=== PATIENT | male | born 1945 | race Caucasian/White ===

== ENCOUNTER 2017-02-15 12:21 | Inpatient (IN) | payer OTHER, MEDICARE ==
[~2017-02-15] VITALS: Ht 172.7 cm; Wt 86.3 kg
[2017-02-15] MEDS ORDERED: SODIUM CHLORIDE 0.9% 500 ML IVB ONE (13:45)
[2017-02-15] MEDS ORDERED: LEVOFLOXACIN 500MG 100 ML IV ONE (13:45)
[2017-02-15] MEDS ORDERED: NOREPINEPHRINE BITARTRATE 250 ML IV ONE (15:15)
[2017-02-15] MEDS ORDERED: ACETAMINOPHEN 650 MG RECT SUPP PR ONE (15:30)
[2017-02-15] MEDS: NOREPINEPHRINE BITARTRATE 250 ML IV SCH (15:30)
[2017-02-15] MEDS ORDERED: NOREPINEPHRINE BITARTRATE 250 ML IV SCH (15:30)
[2017-02-15 15:41] LABS: Basophils # (auto) 0 uL; Basophils % (auto) 0.1 % (0.0-2.0); CONDITION Y; Eosinophils # (auto) 0 uL; Eosinophils % (auto) 0.1 % (0.0-7.0); Hematocrit 35.7 % (41.0-53.0); Hemoglobin 12.3 g/dL (13.5-17.5); Lymphocytes # (auto) 0.8 uL; Lymphocytes % (auto) 3.3 % (10.0-50.0); Mean Corpuscular Hgb Conc. 34.5 g/dL (32.0-36.0); Mean Corpuscular Volume 92.8 fL (80.0-100.0); Mean Platelet Volume 8.9 fL (6.9-10.8); Monocytes # (auto) 1.3 uL; Monocytes % (auto) 5.4 % (0.0-12.0); Neutrophils # (auto) 22.2 uL; Neutrophils % (auto) 91.1 % (37.0-80.0); Platelet Count (auto) 269 10^3/uL (140-450); Red Cell Distribution Width 15.2 % (11.8-14.3); SUSPECT SEE PRINTOUT; White Blood Cell 24.4 10^3/uL (4.4-10.8)
[2017-02-15 16:00] LABS: Albumin 2.4 g/dL (3.4-5.0); BUN/Creatinine Ratio 13.4; Calcium 9.4 mg/dL (8.5-10.1)
[2017-02-15 16:05] LABS: Lactic Acid w/Reflex 5.2 mmol/L (0.4-2.0)
[2017-02-15] MEDS ORDERED: MORPHINE SULF INJ 2 MG/ML SYRINGE 1ML IV PRN (16:15)
[2017-02-15] MEDS ORDERED: ACETAMINOPHEN 325 MG RECT SUPP PR PRN (16:15)
[2017-02-15] MEDS ORDERED: NITROGLYCERIN 0.4 MG SL TAB SL PRN (16:15)
[2017-02-15] MEDS ORDERED: DEXTROSE (50%) 50ML SYRG IV PRN (16:15)
[2017-02-15] MEDS ORDERED: VANCOMYCIN PER PHARMACY 0 MG IV SCH (16:15)
[2017-02-15 16:17] LABS: Bilirubin, Total 1.6 mg/dL (0.2-1.0)
[2017-02-15 16:30] LABS: REFLEX LACTIC ACID YES OR NO YES
[2017-02-15] MEDS ORDERED: ACETAMINOPHEN 500 MG TAB PO PRN (16:30)
[2017-02-15] MEDS ORDERED: SODIUM CHLORIDE 0.9% 1,000 ML IV ONE (17:15)
[2017-02-15] MEDS: LINEZOLID 600MG/300ML 300 ML IV SCH (17:20)
[2017-02-15] MEDS: SODIUM CHLORIDE 0.9% 1,000 ML IV SCH (17:20)
[2017-02-15] MEDS ORDERED: PIPERACILLIN-TAZOB 3.375GM 100 ML IV SCH (18:00)
[2017-02-15] MEDS: ACCU-CHEK COMFORT CURVE STRIP VI SCH (19:08)
[2017-02-15] MEDS: PIPERACILLIN-TAZOB 2.25GM 50 ML IV SCH (19:13)
[2017-02-15] MEDS: InsuLIN REG 1unit/0.01ml Soln (100units/ml) SC SCH (19:24)
[2017-02-15 20:21] LABS: Urine Bilirubin Negative (Negative); Urine Blood 2+ /uL (Negative); Urine Glucose Normal (Normal); Urine Ketone Negative (Negative); Urine Mucus FEW (None Seen); Urine Nitrite Negative (Negative); Urine RBC 437 /hpf (0 - 3); Urine Squamous Epithelial Cell FEW /hpf (<5); Urine Urobilinogen Normal (Negative); Urine pH 5.5 (5.0-8.0)
[2017-02-15 20:22] LABS: Urine Color Yellow (Yellow)
[2017-02-15 23:15] VITALS: BP 112/39
[2017-02-15 23:30] VITALS: BP 117/53
[2017-02-15 23:45] VITALS: BP 116/58
[2017-02-16] VITALS (83 sets, daily range): BP systolic 81–135; BP diastolic 29–94
[2017-02-16] MEDS: PIPERACILLIN-TAZOB 2.25GM 50 ML IV SCH ×5 (00:28→23:34)
[2017-02-16] MEDS: SODIUM CHLORIDE 0.9% 1,000 ML IV SCH (02:15)
[2017-02-16 03:32] LABS: Basophils # (auto) 0.1 uL; Basophils % (auto) 0.3 % (0.0-2.0); Eosinophils # (auto) 0 uL; Eosinophils % (auto) 0.1 % (0.0-7.0); Hemoglobin 10.8 g/dL (13.5-17.5); Lymphocytes # (auto) 0.8 uL; Mean Corpuscular Hemoglobin 31.1 pg (28.0-32.0); Mean Corpuscular Hgb Conc. 32.7 g/dL (32.0-36.0); Mean Corpuscular Volume 95.2 fL (80.0-100.0); Mean Platelet Volume 8.1 fL (6.9-10.8); Monocytes # (auto) 1.3 uL; Neutrophils % (auto) 89.6 % (37.0-80.0); Platelet Count (auto) 200 10^3/uL (140-450); Red Cell Distribution Width 15.3 % (11.8-14.3); White Blood Cell 21.2 10^3/uL (4.4-10.8)
[2017-02-16 03:58] LABS: Albumin 2.1 g/dL (3.4-5.0); Calcium 7.9 mg/dL (8.5-10.1); Potassium 4.2 mmol/L (3.5-5.1)
[2017-02-16 04:00] LABS: BUN/Creatinine Ratio 15.5
[2017-02-16 04:16] LABS: Bilirubin, Total 1.4 mg/dL (0.2-1.0); Total Protein 6.5 g/dL (6.4-8.2)
[2017-02-16] MEDS: LINEZOLID 600MG/300ML 300 ML IV SCH ×2 (05:20→16:09)
[2017-02-16] MEDS: InsuLIN REG 1unit/0.01ml Soln (100units/ml) SC SCH ×5 (05:32→23:33)
[2017-02-16] MEDS: ACCU-CHEK COMFORT CURVE STRIP VI SCH ×5 (05:59→23:33)
[2017-02-16] MEDS: NOREPINEPHRINE BITARTRATE 250 ML IV SCH (08:40)
[2017-02-16] MEDS: PANTOPRAZOLE 40 MG/10 ML VIAL IV SCH (12:05)
[2017-02-16] MEDS: SODIUM BICARBONATE 50ML VIAL 50 ML in SOD CHL 0.45% 1,000 ML IV SCH (13:40)
[2017-02-16] MEDS ORDERED: SIMV-8 PO (15:49)
[2017-02-16] MEDS ORDERED: POTA10SO11 PO (15:49)
[2017-02-16] MEDS ORDERED: FERR27TA2 PO (15:49)
[2017-02-16] MEDS ORDERED: CALC667C PO (15:49)
[2017-02-16] MEDS ORDERED: CAR3125T OR (15:49)
[2017-02-16] MEDS ORDERED: FURO80TA PO (15:49)
[2017-02-17] VITALS (94 sets, daily range): BP systolic 89–137; BP diastolic 32–82
[2017-02-17] MEDS: SODIUM BICARBONATE 50ML VIAL 50 ML in SOD CHL 0.45% 1,000 ML IV SCH ×3 (00:21→14:27)
[2017-02-17 03:36] LABS: Basophils # (auto) 0.1 uL; Basophils % (auto) 0.5 % (0.0-2.0); Eosinophils # (auto) 0.2 uL; Hematocrit 32.1 % (41.0-53.0); Hemoglobin 10.7 g/dL (13.5-17.5); Lymphocytes # (auto) 0.7 uL; Mean Corpuscular Hemoglobin 31.2 pg (28.0-32.0); Mean Corpuscular Hgb Conc. 33.4 g/dL (32.0-36.0); Mean Corpuscular Volume 93.5 fL (80.0-100.0); Monocytes # (auto) 1.3 uL; Monocytes % (auto) 7.3 % (0.0-12.0); Neutrophils # (auto) 15.7 uL; Neutrophils % (auto) 87.2 % (37.0-80.0); Platelet Count (auto) 169 10^3/uL (140-450); Red Cell Distribution Width 15.4 % (11.8-14.3); White Blood Cell 17.9 10^3/uL (4.4-10.8)
[2017-02-17 03:46] LABS: INR 1.06 (0.9-1.15); Partial Thromboplastin Time 43.2 sec (22.64-33.71); Prothrombin Time 11.6 sec (9.37-12.3)
[2017-02-17 04:14] LABS: BUN/Creatinine Ratio 22.5; Bilirubin, Total 0.9 mg/dL (0.2-1.0); Calcium 8.1 mg/dL (8.5-10.1); Potassium 3.8 mmol/L (3.5-5.1); Total Protein 6.5 g/dL (6.4-8.2)
[2017-02-17] MEDS: LINEZOLID 600MG/300ML 300 ML IV SCH ×2 (05:11→16:30)
[2017-02-17] MEDS: PIPERACILLIN-TAZOB 2.25GM 50 ML IV SCH ×4 (06:14→23:41)
[2017-02-17] MEDS: ACCU-CHEK COMFORT CURVE STRIP VI SCH ×4 (06:14→23:41)
[2017-02-17] MEDS: InsuLIN REG 1unit/0.01ml Soln (100units/ml) SC SCH ×4 (06:15→23:41)
[2017-02-17] MEDS: PANTOPRAZOLE 40 MG/10 ML VIAL IV SCH (09:35)
[2017-02-17 12:06] LABS: Allen Test No; Base Excess -0.8 mmol/L (-2.0-2.0); Blood 02Sat 95.4 % (96-100); Blood COHb 0.4 % (0.5-1.5); Blood MetHb 0.3 % (0.0-1.5); HCO3 23.1 mmol/L (22-26.0); HHb 4.6 % (0.0-5.0); MODE NASAL CANNULA; O2Hb 94.7 % (94.0-97.0); PCO2 35.7 mmHg (35.0-45.0); PCO2(T) 35.7 mmHg (35.0-45.0); PO2 79.9 mmHg (80.0-100.0); PO2(T) 79.9 mmHg (80.0-100.0); Sample Type Arterial; pH 7.429 (7.350-7.450)
[2017-02-17] MEDS: NOREPINEPHRINE BITARTRATE 250 ML IV SCH (16:18)
[2017-02-17] MEDS: HYDROCORTISONE SOD SUCC 100 MG/2ML INJ VIAL IV SCH (22:27)
[2017-02-18] VITALS (67 sets, daily range): BP systolic 90–143; BP diastolic 35–82
[2017-02-18 03:56] LABS: Basophils # (auto) 0 uL; Basophils % (auto) 0.1 % (0.0-2.0); Eosinophils # (auto) 0 uL; Eosinophils % (auto) 0.2 % (0.0-7.0); Hematocrit 31.4 % (41.0-53.0); Hemoglobin 10.4 g/dL (13.5-17.5); Lymphocytes # (auto) 0.4 uL; Lymphocytes % (auto) 4.8 % (10.0-50.0); Mean Corpuscular Hemoglobin 31.1 pg (28.0-32.0); Mean Corpuscular Hgb Conc. 33.3 g/dL (32.0-36.0); Mean Corpuscular Volume 93.5 fL (80.0-100.0); Mean Platelet Volume 8.6 fL (6.9-10.8); Monocytes # (auto) 0.2 uL; Neutrophils # (auto) 8.4 uL; Neutrophils % (auto) 92.9 % (37.0-80.0); Nucleated Red Blood Cells % 0.1 %; Platelet Count (auto) 127 10^3/uL (140-450); Red Cell Distribution Width 15.5 % (11.8-14.3); White Blood Cell 9.1 10^3/uL (4.4-10.8)
[2017-02-18 04:07] LABS: BUN/Creatinine Ratio 26.4; Calcium 8.1 mg/dL (8.5-10.1); Magnesium 1.9 mg/dL (1.6-2.6); Potassium 3.9 mmol/L (3.5-5.1)
[2017-02-18] MEDS: LINEZOLID 600MG/300ML 300 ML IV SCH (05:00)
[2017-02-18] MEDS: PIPERACILLIN-TAZOB 2.25GM 50 ML IV SCH ×3 (06:06→17:59)
[2017-02-18] MEDS: ACCU-CHEK COMFORT CURVE STRIP VI SCH ×4 (06:06→23:24)
[2017-02-18] MEDS: InsuLIN REG 1unit/0.01ml Soln (100units/ml) SC SCH ×4 (06:12→23:23)
[2017-02-18] MEDS: HYDROCORTISONE SOD SUCC 100 MG/2ML INJ VIAL IV SCH (10:29)
[2017-02-18] MEDS: PANTOPRAZOLE 40 MG/10 ML VIAL IV SCH (10:29)
[2017-02-18] MEDS: SODIUM BICARBONATE 50ML VIAL 50 ML in SOD CHL 0.45% 1,000 ML IV SCH (10:31)
[2017-02-18] MEDS: SODIUM CHLORIDE 0.9% 1,000 ML IV SCH ×2 (11:51→21:30)
[2017-02-19] VITALS (20 sets, daily range): BP systolic 112–135; BP diastolic 43–73
[2017-02-19] MEDS: PIPERACILLIN-TAZOB 2.25GM 50 ML IV SCH ×2 (00:23→05:33)
[2017-02-19 04:00] LABS: Basophils # (auto) 0 uL; Basophils % (auto) 0.1 % (0.0-2.0); Eosinophils # (auto) 0 uL; Hematocrit 29.9 % (41.0-53.0); Hemoglobin 9.9 g/dL (13.5-17.5); Lymphocytes # (auto) 0.5 uL; Lymphocytes % (auto) 8.1 % (10.0-50.0); Mean Corpuscular Hemoglobin 31.3 pg (28.0-32.0); Mean Corpuscular Volume 94.6 fL (80.0-100.0); Mean Platelet Volume 8.5 fL (6.9-10.8); Monocytes # (auto) 0.3 uL; Monocytes % (auto) 5.4 % (0.0-12.0); Neutrophils # (auto) 5.3 uL; Neutrophils % (auto) 86.4 % (37.0-80.0); Nucleated Red Blood Cells % 0.2 %; Platelet Count (auto) 97 10^3/uL (140-450); Red Cell Distribution Width 15.1 % (11.8-14.3); White Blood Cell 6.1 10^3/uL (4.4-10.8)
[2017-02-19 04:12] LABS: Potassium 3.5 mmol/L (3.5-5.1)
[2017-02-19] MEDS: SODIUM CHLORIDE 0.9% 1,000 ML IV SCH ×2 (04:18→17:30)
[2017-02-19] MEDS: InsuLIN REG 1unit/0.01ml Soln (100units/ml) SC SCH ×4 (06:00→23:59)
[2017-02-19] MEDS: ACCU-CHEK COMFORT CURVE STRIP VI SCH ×4 (06:00→23:59)
[2017-02-19] MEDS ORDERED: PIPERACILLIN-TAZOB 2.25GM 50 ML IV ONE (12:00)
[2017-02-19] MEDS ORDERED: AMIKACIN 0 ML IV SCH (12:15)
[2017-02-19] MEDS: AMIKACIN IV SCH (13:36)
[2017-02-19] MEDS: D5W 5% IV SCH (13:36)
[2017-02-20] VITALS: BP 123/62
[2017-02-20 04:00] VITALS: BP 131/81
[2017-02-20 05:34] LABS: Basophils # (auto) 0 uL; Basophils % (auto) 0.3 % (0.0-2.0); Eosinophils # (auto) 0.1 uL; Eosinophils % (auto) 1.1 % (0.0-7.0); Hemoglobin 10.5 g/dL (13.5-17.5); Lymphocytes # (auto) 0.8 uL; Mean Corpuscular Hemoglobin 31.9 pg (28.0-32.0); Mean Corpuscular Hgb Conc. 33.7 g/dL (32.0-36.0); Mean Corpuscular Volume 94.6 fL (80.0-100.0); Monocytes # (auto) 0.7 uL; Neutrophils # (auto) 5.7 uL; Neutrophils % (auto) 77.6 % (37.0-80.0); Platelet Count (auto) 118 10^3/uL (140-450); Red Cell Distribution Width 15.3 % (11.8-14.3); White Blood Cell 7.3 10^3/uL (4.4-10.8)
[2017-02-20 05:52] LABS: BUN/Creatinine Ratio 32.7; Potassium 3.7 mmol/L (3.5-5.1)
[2017-02-20 08:00] VITALS: BP 127/63
[2017-02-20] MEDS: SODIUM CHLORIDE 0.9% 1,000 ML IV SCH ×2 (09:22→13:30)
[2017-02-20 12:00] VITALS: BP 139/65
[2017-02-20] MEDS: D5W 5% IV SCH (14:17)
[2017-02-20] MEDS: AMIKACIN IV SCH (14:17)
[2017-02-20] MEDS: InsuLIN REG 1unit/0.01ml Soln (100units/ml) SC SCH (14:18)
[2017-02-20 16:00] VITALS: BP 134/73
== END 2017-02-20 17:29 | DRG 871 ==
LOC: ER 12:21 → TELE 12:22 → ICU WEST 22:50 → DOU IN ICU 02-19 04:06
PROVIDERS: ADMIT Internal Medicine; ATTEND Hospitalist
DX: A41.52 Sepsis due to Pseudomonas (principal); R65.21 Severe sepsis with septic shock; N17.0 Acute kidney failure with tubular necrosis; J69.0 Pneumonitis due to inhalation of food and vomit; G93.41 Metabolic encephalopathy; E11.22 Type 2 diabetes mellitus with diabetic chronic kidney disease; I44.1 Atrioventricular block, second degree; I13.0 Hypertensive heart and chronic kidney disease with heart failure and stage 1 through stage 4 chronic kidney disease, or unspecified chronic kidney disease; I50.32 Chronic diastolic (congestive) heart failure; G97.82 Other postprocedural complications and disorders of nervous system; N13.30 Unspecified hydronephrosis; N39.0 Urinary tract infection, site not specified; I69.154 Hemiplegia and hemiparesis following nontraumatic intracerebral hemorrhage affecting left non-dominant side; G47.30 Sleep apnea, unspecified; E66.9 Obesity, unspecified; E78.5 Hyperlipidemia, unspecified; M10.9 Gout, unspecified; J44.9 Chronic obstructive pulmonary disease, unspecified; N18.9 Chronic kidney disease, unspecified; Z16.24 Resistance to multiple antibiotics; E86.1 Hypovolemia; G96.19 Other disorders of meninges, not elsewhere classified; Y83.8 Other surgical procedures as the cause of abnormal reaction of the patient, or of later complication, without mention of misadventure at the time of the procedure; Y82.8 Other medical devices associated with adverse incidents; F09 Unspecified mental disorder due to known physiological condition; Z68.28 Body mass index [BMI] 28.0-28.9, adult; Z82.49 Family history of ischemic heart disease and other diseases of the circulatory system; Z85.46 Personal history of malignant neoplasm of prostate; Z88.8 Allergy status to other drugs, medicaments and biological substances; Y92.89 Other specified places as the place of occurrence of the external cause; Z71.89 Other specified counseling; Z92.3 Personal history of irradiation; Z93.3 Colostomy status; Z85.038 Personal history of other malignant neoplasm of large intestine; I69.193 Ataxia following nontraumatic intracerebral hemorrhage
CPT/HCPCS: 36415; 51702; 70450; 71010; 76775; 80048; 80053; 80150; 81001; 82570; 82962; 83036; 83605; 83735; 84156; 84300; 84484; 85025; 85610; 85730; 87040; 87081; 87086; 87088; 87186; 93005; 93306; 95819; 96361; 96365; 96375; 99291; C9113; J1815; J1956; J2543; J7060